=== PATIENT | female | born 1980 | race Caucasian/White ===

== ENCOUNTER 2019-09-09 02:57 | Day surgery (SDC) | payer BC, SELFPAY ==
[2019-09-07 14:23] VITALS: BMI 23.1
[2019-09-09 06:48] VITALS: BP 125/72; PULSE 95; RESP 15; TEMP 36.5; O2SAT 100; BMI 23.5
--- NOTE | 2019-09-09 07:13 | P.HP_ITS ---
History of Present Illness History of Present Illness Consent: Risks, benefits, and alternatives have been discussed and questions answered. Patient agrees to proceed with procedure. Chief complaint: Heart Burn/ Acid Reflux Narrative: Mehnaz Bell is a 38 year old female acid reflux problems. She has frequent heartburn during the day not necessarily related to meals. Lately she has been waking up at night regurgitating acid causing a great deal of burning in her chest. She gets some temporary relief with [id number] preparations. [facility], LATER [facility] Past Medical History Medical History Dysphagia Heartburn Hypokalemia Left hip pain Left knee pain Osteopenia Smoking Family History Family History Grandparent Hypertension Carcinoma of colon Father Diabetes mellitus Hypertension Malignant neoplasm of prostate Other Family history of malignant neoplasm of stomach Social History Social History Smoking status: Current every day smoker Alcohol intake: never Meds Home Medications and Allergies Home Medications Medication Instructions Recorded Confirmed Type calcium carbonate 600 mg calcium 600 mg PO DAILY #30 tablet 06/08/19 09/07/19 Rx (1,500 mg) tablet cholecalciferol (vitamin D3) 25 1,000 unit PO DAILY #30 cap 06/08/19 09/07/19 Rx mcg (1,000 unit) capsule fluticasone furoate 27.5 1 spray NASAL DAILY 06/08/19 09/07/19 History mcg/actuation nasal spray,suspension loratadine 10 mg tablet 10 mg PO DAILY 06/08/19 09/07/19 History magnesium oxide 400 mg PO DAILY #30 cap 06/08/19 09/07/19 Rx trazodone 50 mg tablet 50 mg PO DAILY tablet 06/08/19 09/07/19 History potassium chloride 10 mEq 10 meq PO TID #90 tablet 07/14/19 09/07/19 Rx tablet,extended release gabapentin 100 mg capsule 300 mg PO TID #270 cap 07/16/19 09/07/19 Rx hydrocodone 5 mg-acetaminophen 325 1 tablet PO Q8H PRN #42 tablet 08/28/19 09/09/19 Rx mg tablet Allergies Allergy/AdvReac Type Severity Reaction Status Date / Time aspirin Allergy Severe Anaphylaxis Verified 09/09/19 07:02 tramadol AdvReac Verified 09/09/19 07:02 Exam Const: General: alert Orientation/consciousness: patient oriented x3 Resp: Auscultation: clear to auscultation bilaterally Cardio: Rhythm: regular rhythm GI: GI Palp: Yes Soft to palpation and No Tenderness to palpation present (GI) Neuro: General: patient oriented x3 Assessment and Plan Assessment and plan (1) Heartburn: Code(s): R12 - Heartburn Status: Acute Assessment and Plan: EGD with possible biopsy or dilatation or cautery.
--- NOTE | 2019-09-09 07:19 | WPDANESEPPF ---
Anes - Initial Pre Proc Eval Procedure: Operation Date: 09/09/19 08:00 Proposed Procedures p Esophagogastroduodenoscopy - Humberto Claire MD Date/Time: 09/09/19 07:19 Surgeon: Humberto Claire MD Pre Op Diagnosis: Heart Burn/ Acid Reflux Patient Data Age: 38 Gender: F Height: 1.68 m Weight: 66 kg Last Vital Signs Temp 36.5 C 09/09/19 06:48 Pulse 95 09/09/19 06:48 Resp 15 09/09/19 06:48 BP 125/72 09/09/19 06:48 Pulse Ox 100 09/09/19 06:48 Allergies Allergy/AdvReac Type Severity Reaction Status Date / Time aspirin Allergy Severe Anaphylaxis Verified 09/09/19 07:02 tramadol AdvReac Verified 09/09/19 07:02 Home Medications Medication Instructions Recorded Confirmed Type calcium carbonate 600 mg calcium 600 mg PO DAILY #30 tablet 06/08/19 09/07/19 Rx (1,500 mg) tablet cholecalciferol (vitamin D3) 25 1,000 unit PO DAILY #30 cap 06/08/19 09/07/19 Rx mcg (1,000 unit) capsule fluticasone furoate 27.5 1 spray NASAL DAILY 06/08/19 09/07/19 History mcg/actuation nasal spray,suspension loratadine 10 mg tablet 10 mg PO DAILY 06/08/19 09/07/19 History magnesium oxide 400 mg PO DAILY #30 cap 06/08/19 09/07/19 Rx trazodone 50 mg tablet 50 mg PO DAILY tablet 06/08/19 09/07/19 History potassium chloride 10 mEq 10 meq PO TID #90 tablet 07/14/19 09/07/19 Rx tablet,extended release gabapentin 100 mg capsule 300 mg PO TID #270 cap 07/16/19 09/07/19 Rx hydrocodone 5 mg-acetaminophen 325 1 tablet PO Q8H PRN #42 tablet 08/28/19 09/09/19 Rx mg tablet Patient hx anesthesia problems: none Family hx anesthesia problems: none PMFSH Past Medical History Medical History Dysphagia Heartburn Hypokalemia Left hip pain Left knee pain Osteopenia Smoking Family History Family History Grandparent Hypertension Carcinoma of colon Father Diabetes mellitus Hypertension Malignant neoplasm of prostate Other Family history of malignant neoplasm of stomach Social History Social History Smoking status: Current every day smoker Alcohol intake: never Anes - Eval Final PreProcedure Day of Procedure 09/09/19 07:19 Patient weight: normal Heart: regular rate and rhythm Lungs: clear to auscultation and normal air movement Airway: Mallampati scale class II Neurological: alert and oriented Last oral intake: >/= 8 hours ASA classification: III Emergent: no Anesthetic plan: proceed Anesthesia type and monitoring: general GIVS Informed Consent: The patient's anesthetic plan and its attendant risks and benefits were discussed with the patient/family/POA. Questions were solicited and answers provided to the satisfaction of the patient/family/POA.
[2019-09-09] MEDS: LACTATED RINGERS 1,000 ML 150 ML IV CONT (07:30)
[2019-09-09 08:12] VITALS: BP 93/56; PULSE 82; RESP 25; O2SAT 98
[2019-09-09 08:24] VITALS: BP 104/65; PULSE 84; RESP 24; O2SAT 100
[2019-09-09 08:32] VITALS: BP 110/68; PULSE 89; RESP 18; O2SAT 100
== END 2019-09-09 08:43 | disposition home or self-care (01) ==
PROVIDERS: PCP Family Medicine; Visit Provider Internal Medicine Gastroenterology
PROC: 0DJ08ZZ Inspection of Upper Intestinal Tract, Via Natural or Artificial Opening Endoscopic (ICD-10-PCS; CPT 43235; principal; 2019-09-09 08:00)
DX: K21.0 Gastro-esophageal reflux disease with esophagitis (principal); K44.9 Diaphragmatic hernia without obstruction or gangrene; M85.80 Other specified disorders of bone density and structure, unspecified site; F17.210 Nicotine dependence, cigarettes, uncomplicated
CPT/HCPCS: 43239; 87081; 88305; 88312; J2704; J7120

== ENCOUNTER 2019-09-29 12:37 | Outpatient (CLI) | payer BC, SELFPAY ==
--- NOTE | 2019-09-30 20:42 | WPDPFTINT ---
PFT Interpretation PFT Interpretation: DOS: 09/29/2019 REQUESTING: Silvia Wilkinson NP REASON FOR TESTING: Chronic cough PULMONARY FUNCTION TESTS These test results are reproducible. Spirometry: Normal FEV1 92%. Normal FVC 96%. Normal FEV1%. Mild decrease in ANA01-89%. No change with bronchodilator. Lung volumes: Normal total lung capacity 99%. Normal residual volume 96%. Normal airway resistance. Diffusion: DLCO mildly reduced 68%. Flow volume loop: Blunting of the peak of the expiratory limb which improves after bronchodilator. IMPRESSION: Normal spirometry without change following bronchodilator, normal lung volumes, mild decrease in diffusion which may be due to smoking. Nonspecific blunting of the peak of the expiratory limb which improves after bronchodilator. Kate Valdivia MD
== END 2019-09-29 12:38 | disposition home or self-care (01) ==
PROVIDERS: PCP Family Medicine; Visit Provider Physician Assistant
DX: R05 Cough (principal); F17.200 Nicotine dependence, unspecified, uncomplicated
CPT/HCPCS: 94060; 94726; 94729

== ENCOUNTER 2020-02-01 12:21 | Outpatient (CLI) | payer BC, SELFPAY ==
--- NOTE | ~2020-02-01 | XR_ITS ---
EXAMINATION: XR humerus LT EXAM DATE: 02/01/2020 13:04 INDICATION: Other signs and symptoms of the musculoskeletal system. TECHNIQUE: 2 orthogonal projections left humerus. There is no prior study for comparison. FINDINGS: There are no acute humeral fractures or dislocations identified. There is no subcutaneous gas. The soft tissue is unremarkable. There are no radiopaque foreign bodies. IMPRESSION: 1. Unremarkable left humerus exam. Reviewed, dictated and finalized at location B.
--- NOTE | ~2020-02-01 | XR_ITS ---
EXAMINATION: XR_CERV2-3V_CR EXAM DATE: 02/01/2020 13:05 INDICATION: Other signs and symptoms of the musculoskeletal system. TECHNIQUE: Cervical spine frontal, lateral, open-mouth odontoid projections. There is no prior stud y for comparison. FINDINGS: There is old right 6th rib fracture posteriorly. Craniotomy. Lung apices clear. There is m ild reversal of the normal cervical lordosis which may be positional or spasm. Mild cervical facet a rthropathy. The vertebral bodies are aligned in the AP dimension. Vertebral body and disc heights are well-maintained. The odontoid process is intact. The lateral masses of C1 line up with C2. IMPRESSION: 1. Mild reversal of normal cervical lordosis. 2. Mild cervical facet arthropathy. Reviewed, dictated and finalized at location B.
--- NOTE | ~2020-02-01 | XR_ITS ---
EXAMINATION: XR wrist LT 2V EXAM DATE: 02/01/2020 13:04 INDICATION: Other signs and symptoms of the musculoskeletal system. TECHNIQUE: Frontal and lateral projections of the left wrist. There is no prior study for compariso n. FINDINGS: There are no bony erosions identified. There are no acute fractures or dislocations identi fied. There is no subcutaneous gas. The soft tissue is unremarkable. There are no radiopaque fore ign bodies. Left scapholunate joint space is maintained. IMPRESSION: 1. Unremarkable left wrist exam. Reviewed, dictated and finalized at location B.
== END 2020-02-01 12:22 | disposition home or self-care (01) ==
LOC: ANHIMG 12:28
PROVIDERS: PCP Family Medicine; Visit Provider Physician Assistant
DX: R29.898 Other symptoms and signs involving the musculoskeletal system (principal); Z91.81 History of falling
CPT/HCPCS: 72040; 73060; 73100

== ENCOUNTER 2020-03-10 08:09 | Outpatient (CLI) | payer BC, SELFPAY ==
--- NOTE | ~2020-03-10 | MR_ITS ---
EXAMINATION: MR cervical spine wo con EXAM DATE: 03/10/2020 09:12 INDICATION: Neck pain. TECHNIQUE: Multi-sequential, multiplanar MR images of the cervical spine were obtained without contra st. Axial T2, axial T2 MERGE sequence. Sagittal T1, T2, T2 fat saturation images also obtained. Th ere is no prior study for comparison. FINDINGS: There is mild disc disease from C3 through C6. The vertebral body and disc heights are oth erwise well maintained. The vertebral bodies are aligned in the AP dimension. The spinal cord signal intensity and intrinsic morphology is normal. Cervicomedullary junction is normal in appearance. Ther e are no suspicious marrow signal abnormalities. Paraspinal soft tissue is unremarkable. Level by level evaluation: C2-C3: Disc does not extend beyond the endplate margin. Uncovertebral joint arthropathy: None. Facet joint arthropathy: Mild bilateral. Neural foraminal stenosis: No stenosis. Central canal stenosis: No stenosis. C3-C4: Disc does not extend beyond the endplate margin. Uncovertebral joint arthropathy: None. Facet joint arthropathy: Mild bilateral. Neural foraminal stenosis: No stenosis. Central canal stenosis: No stenosis. C4-C5: Disc does not extend beyond the endplate margin. Uncovertebral joint arthropathy: Mild bilateral. Facet joint arthropathy: Mild bilateral. Neural foraminal stenosis: Mild right, minimal left. Central canal stenosis: No stenosis. C5-C6: There is a mild diffuse disc bulge. Uncovertebral joint arthropathy: Mild bilateral. Facet joint arthropathy: Mild to moderate bilateral. Neural foraminal stenosis: Mild to moderate bilateral. Central canal stenosis: Mild. C6-C7: Disc does not extend beyond the endplate margin. Uncovertebral joint arthropathy: Mild bilateral. Facet joint arthropathy: Mild to moderate bilateral. Neural foraminal stenosis: Minimal bilateral. Central canal stenosis: No stenosis. C7-T1: Disc does not extend beyond the endplate margin. Uncovertebral joint arthropathy: None. Facet joint arthropathy: Mild bilateral. Neural foraminal stenosis: No stenosis. Central canal stenosis: No stenosis. IMPRESSION: 1. Mild cervical spondylosis. Reviewed, dictated and finalized at location A.
== END 2020-03-10 08:10 | disposition home or self-care (01) ==
PROVIDERS: PCP Family Medicine; Visit Provider Physician Assistant
DX: R20.2 Paresthesia of skin (principal); R29.898 Other symptoms and signs involving the musculoskeletal system; M47.892 Other spondylosis, cervical region
CPT/HCPCS: 72141

== ENCOUNTER 2020-03-16 00:38 | Outpatient (CLI) | payer BC, SELFPAY ==
[2020-03-16 18:41] LABS: SARS-CoV-2 RNA PCR Negative
== END 2020-03-16 00:39 | disposition home or self-care (01) ==
LOC: ANHCOVIDDT 00:39
PROVIDERS: PCP Family Medicine; Visit Provider Internal Medicine Gastroenterology
DX: Z01.812 Encounter for preprocedural laboratory examination (principal); Z20.828 Contact with and (suspected) exposure to other viral communicable diseases
CPT/HCPCS: 87635; C9803; U0003

== ENCOUNTER 2020-03-18 01:59 | Day surgery (SDC) | payer BC, SELFPAY ==
[2020-03-10 13:26] VITALS: BMI 22.7
[2020-03-18 09:23] VITALS: BP 120/80; PULSE 86; RESP 16; TEMP 36.6; O2SAT 100; BMI 22.6
--- NOTE | 2020-03-18 09:24 | P.HP_ITS ---
History of Present Illness History of Present Illness Consent: Risks, benefits, and alternatives have been discussed and questions answered. Patient agrees to proceed with procedure. Chief complaint: esophagitis Narrative: Mehnaz Bell is a 39 year old female here for follow-up of severe erosive esophagitis. She has been taking omeprazole 40 mg daily and feeling better. [facility] Past Medical History Medical History Allergic rhinitis Anemia Cough Depression Dysphagia Heartburn Hypokalemia Left arm weakness Left hip pain Left knee pain Neck pain Osteopenia Pure hypercholesterolemia Reflux esophagitis Smoking Status post fall Wellness examination Social History Social History Smoking packs per day: 0.5 Smoking cigarettes per day: 10.0 Years smoked: 15 Smoking pack-years: 7.50 Smoking status: Current every day smoker Tobacco type: cigarettes Alcohol intake: never Substance use: never Substance use type: does not use Gender identity (if verbalized by the patient): Female Meds Home Medications and Allergies Home Medications Medication Instructions Recorded Confirmed Type magnesium oxide 400 mg PO DAILY #30 cap 06/08/19 03/10/20 Rx ferrous sulfate 325 mg (65 mg 325 mg PO .EOD #45 tablet 01/11/20 03/10/20 Rx iron) tablet omeprazole 40 mg capsule,delayed 40 mg PO DAILY #90 cap 01/12/20 03/10/20 Rx release albuterol sulfate 90 mcg/actuation 2 inhalation INHALATION Q4H PRN 02/15/20 03/10/20 Rx aerosol inhaler #8.5 gm armodafinil 150 mg tablet 150 mg PO QAM #30 tablet 02/15/20 03/10/20 Rx fluticasone furoate 27.5 1 spray NASAL DAILY #18.2 ml 02/15/20 03/10/20 Rx mcg/actuation nasal spray,suspension loratadine 10 mg tablet 10 mg PO DAILY #30 tablet 02/15/20 03/10/20 Rx potassium chloride 10 mEq 10 meq PO TID #90 tablet 02/15/20 03/10/20 Rx tablet,extended release trazodone 50 mg tablet See Rx Instructions .ROUTE 02/15/20 03/10/20 Rx .COMPLEX #30 tablet gabapentin 100 mg capsule 300 mg PO TID #270 cap 03/01/20 03/10/20 Rx melatonin 20 mg PO HS PRN 03/10/20 03/10/20 History hydrocodone 5 mg-acetaminophen 325 1 tablet PO Q8H PRN #42 tablet 03/11/20 03/11/20 Rx mg tablet Allergies Allergy/AdvReac Type Severity Reaction Status Date / Time aspirin Allergy Severe Anaphylaxis Verified 03/18/20 09:23 tramadol AdvReac high risk Verified 03/18/20 09:23 for seizures Exam Const: General: alert Orientation/consciousness: patient oriented x3 Resp: Auscultation: clear to auscultation bilaterally Cardio: Rhythm: regular rhythm GI: GI Palp: Yes Soft to palpation and No Tenderness to palpation present (GI) Neuro: General: patient oriented x3 Assessment and Plan Assessment and plan (1) Esophagitis, erosive: Code(s): K22.10 - Ulcer of esophagus without bleeding Status: Acute Assessment and Plan: EGD with possible biopsy or dilatation or cautery.
[2020-03-18] MEDS: LACTATED RINGERS 1,000 ML 150 ML IV CONT (09:42)
--- NOTE | 2020-03-18 09:51 | WPDANESEPPF ---
Anes - Initial Pre Proc Eval Procedure: Operation Date: 03/18/20 10:00 Proposed Procedures p Esophagogastroduodenoscopy - Humberto Claire MD Date/Time: 03/18/20 09:51 Surgeon: Humberto Claire MD Pre Op Diagnosis: esophagitis Patient Data Age: 39 Gender: F Height: 5 ft 6 in Weight: 63.6 kg Last Vital Signs Temp 97.8 F 03/18/20 09:23 Pulse 86 03/18/20 09:23 Resp 16 03/18/20 09:23 BP 120/80 03/18/20 09:23 Pulse Ox 100 03/18/20 09:23 Allergies Allergy/AdvReac Type Severity Reaction Status Date / Time aspirin Allergy Severe Anaphylaxis Verified 03/18/20 09:23 tramadol AdvReac high risk Verified 03/18/20 09:23 for seizures Home Medications Medication Instructions Recorded Confirmed Type magnesium oxide 400 mg PO DAILY #30 cap 06/08/19 03/18/20 Rx ferrous sulfate 325 mg (65 mg 325 mg PO .EOD #45 tablet 01/11/20 03/18/20 Rx iron) tablet omeprazole 40 mg capsule,delayed 40 mg PO DAILY #90 cap 01/12/20 03/18/20 Rx release albuterol sulfate 90 mcg/actuation 2 inhalation INHALATION Q4H PRN 02/15/20 03/18/20 Rx aerosol inhaler #8.5 gm armodafinil 150 mg tablet 150 mg PO QAM #30 tablet 02/15/20 03/18/20 Rx fluticasone furoate 27.5 1 spray NASAL DAILY #18.2 ml 02/15/20 03/18/20 Rx mcg/actuation nasal spray,suspension loratadine 10 mg tablet 10 mg PO DAILY #30 tablet 02/15/20 03/18/20 Rx potassium chloride 10 mEq 10 meq PO TID #90 tablet 02/15/20 03/18/20 Rx tablet,extended release trazodone 50 mg tablet See Rx Instructions .ROUTE 02/15/20 03/18/20 Rx .COMPLEX #30 tablet gabapentin 100 mg capsule 300 mg PO TID #270 cap 03/01/20 03/18/20 Rx melatonin 20 mg PO HS PRN 03/10/20 03/18/20 History hydrocodone 5 mg-acetaminophen 325 1 tablet PO Q8H PRN #42 tablet 03/11/20 03/18/20 Rx mg tablet Patient hx anesthesia problems: none Family hx anesthesia problems: none PMFSH Past Medical History Medical History Allergic rhinitis Anemia Cough Depression Dysphagia Heartburn Hypokalemia Left arm weakness Left hip pain Left knee pain Neck pain Osteopenia Pure hypercholesterolemia Reflux esophagitis Smoking Status post fall Wellness examination Social History Social History Smoking packs per day: 0.5 Smoking cigarettes per day: 10.0 Years smoked: 15 Smoking pack-years: 7.50 Smoking status: Current every day smoker Tobacco type: cigarettes Alcohol intake: never Substance use: never Substance use type: does not use Gender identity (if verbalized by the patient): Female Anes - Eval Final PreProcedure Day of Procedure 03/18/20 09:51 Patient weight: normal Heart: regular rate and rhythm Lungs: clear to auscultation Airway: Mallampati scale class II Neurological: alert and oriented Last oral intake: >/= 8 hours ASA classification: III Emergent: no Anesthetic plan: proceed Anesthesia type and monitoring: general GIVS and standard monitoring Informed Consent: The patient's anesthetic plan and its attendant risks and benefits were discussed with the patient/family/POA. Questions were solicited and answers provided to the satisfaction of the patient/family/POA.
[2020-03-18] MEDS: BENZOCAINE (*SP) 60 ML SPRAY CAN (HURRICAINE) 1 SPRAY MUCOUS MEM (09:55)
[2020-03-18 10:10] VITALS: BP 106/61; PULSE 81; RESP 13; O2SAT 92
[2020-03-18 10:20] VITALS: BP 112/65; PULSE 74; RESP 15; O2SAT 92
[2020-03-18 10:30] VITALS: BP 112/62; PULSE 88; RESP 15; O2SAT 99
== END 2020-03-18 10:49 | disposition home or self-care (01) ==
PROVIDERS: PCP Family Medicine; Visit Provider Internal Medicine Gastroenterology
PROC: 0DJ08ZZ Inspection of Upper Intestinal Tract, Via Natural or Artificial Opening Endoscopic (ICD-10-PCS; CPT 43235; principal; 2020-03-18 10:00)
DX: K21.0 Gastro-esophageal reflux disease with esophagitis (principal); K22.10 Ulcer of esophagus without bleeding; K29.80 Duodenitis without bleeding; J45.909 Unspecified asthma, uncomplicated; E78.00 Pure hypercholesterolemia, unspecified; F41.9 Anxiety disorder, unspecified; Z79.51 Long term (current) use of inhaled steroids; Z79.899 Other long term (current) drug therapy; Z79.891 Long term (current) use of opiate analgesic; Z86.79 Personal history of other diseases of the circulatory system
CPT/HCPCS: 43239; 88305; J2704; J7120

== ENCOUNTER 2020-03-30 07:39 | Outpatient (CLI) | payer BC, SELFPAY ==
--- NOTE | ~2020-03-30 | NM_ITS ---
EXAM: NM gastric emptying study DATE: 03/30/2020 12:26 INDICATION: Gastroparesis TECHNIQUE: A gastric emptying study was performed using the methodology of Jessica NARVAEZ, et al. J Nucl Med 2007; 48:568-572. The patient was given a meal consisting of 2 scrambled eggs labeled with 0.972 mCi Tc-99m sulfur colloid, 2 slices of toast, two packages of jam, and approximately 120 mL of water . Simultaneous anterior and posterior 1-min images of the abdomen were obtained with the patient supi ne at multiple time points over a total period of 4 hours. The geometric mean of anterior and posteri or views was determined, and the percentage retention was calculated for each time point. COMPARISON: None. FINDINGS: Gastric retention of the radiotracer-labeled meal was 64%, 52%, and 20% at the 1-hour, 2-hour, and 4- hour time points, respectively. With this technique, apparent rapid gastric emptying is suggested by <30% gastric retention at 1 hour. Delayed gastric emptying is defined by gastric retention of >90% at 1 hour, >60% retention at 2 hours, or >10% retention at 4 hours. IMPRESSION: 1. Delayed gastric emptying. Reviewed, dictated and finalized at location A.
== END 2020-03-30 07:40 | disposition home or self-care (01) ==
LOC: ANHIMG 07:40
PROVIDERS: PCP Family Medicine; Visit Provider Internal Medicine Gastroenterology
DX: K31.84 Gastroparesis (principal); K30 Functional dyspepsia
CPT/HCPCS: 78264; A9541

== ENCOUNTER 2020-09-14 09:14 | Outpatient (RCR) | payer BC, SELFPAY ==
--- NOTE | 2020-09-14 10:33 | PTOPEVAL ---
PHYSICAL THERAPY EVALUATION AND PLAN OF CARE Thank you for referring Mehnaz Bell to [facility].? The patient is scheduled to be seen for therapy? 2x/week for 4 weeks. Please review, sign, date and return this plan of care DYLLAN. I agree with and certify that the following plan of care is medically necessary. Referring Physician Date Attending Provider: Carlos Hector MD Evaluation Outpatient Past Medical History Neurological History Hx Other Neurological Disorders Yes: Brain Anyresum 2017 Cardiovascular History Hx Hypercholesterolemia Yes Hx Irregular Heartbeat Yes: when potassium level low Respiratory History Hx Asthma Yes Hx Bronchitis Yes Gastrointestinal History Hx Gastroesophageal Reflux Disease Yes Genitourinary History Hx Genitourinary Disorders No Significant History Musculoskeletal History Hx Back Pain Yes Hx Fibromyalgia Yes: Left hip and leg Hx Orthopedic Surgery Yes: pins in left hip August 2018 Hematological History Hx Anemia Yes Endocrine History Hx Endocrine Disorders No Significant History HEENT History Hx HEENT Disorders No Significant History Integumentary History Hx Skin Disorders No Significant History Reproductive History Hx Reproductive Disorders No Significant History Psychosocial History Hx Anxiety Yes Hx Attention Deficit Hyperactivity Yes Disorder Pain History Has Past Pain Affected Your Daily Life Yes History of Long-Term Prescription Pain Yes Medication Use (Opiates) Anesthesia History Hx Other Anesthesia Reactions Yes: hypotension, baseline bp low Other History Hx Implanted Device Yes: aneurysym clip,pins left hip Hx MRSA Yes: leg 2011 Diagnosis left TKA revision Onset 09/06/2020 Subjective Information Mehnaz has an extensive Query Text:As Reported By Patient/ history of left knee surgeries Family . On 09/06/20 she had surgery to revise TKA on left. She is weight bearing as tolerated to the left leg. She is using a 3 wheeled walker on occasion , but is walking around the clinic without the walker. Reports she has had nothing for pain. Was told by physician she would use walker until he saw her again (09/19) and would progress to
--- NOTE | 2020-09-20 10:33 | PCPTNOTE ---
Patient did not show up for scheduled appointment this date. Called and left message.
--- NOTE | 2020-09-22 15:18 | PCPTNOTE ---
Patient did not show up for scheduled appointment this date; called and left voicemail for reminder on next appointment
--- NOTE | 2020-09-27 09:41 | PCPTNOTE ---
Addendum entered by Sindhu Dyer, EVENT EXECUTIVE 09/27/20 09:54: Called and left voicemail informing patient about appointment on 09/29 @9:15 if she no shows or doesn't call she will be discharged. Original Note: Patient did not show up for scheduled appointment this date; notified therapist on patients 3 no show.
--- NOTE | 2020-09-29 11:00 | PCPTNOTE ---
pt did not show for appt today, which is her 4th NO show appt; called and left a message on her voice mail that ALL her PT appointments have been canceled and she is to call in the next 2 weeks if she needs to continue, otherwise PT will be discharged;
--- NOTE | 2020-10-10 10:16 | PCPTNOTE ---
Admitting Provider: Attending Provider: Carlos Hector MD Patient:Mehnaz Bell Date of :1980 Discharge Note Patient has not returned for any further treatments since therapy evaluation on 09/14/2020, therefore she will be discharged at this time. Patient?s initial visit was on 09/14/2020 09:00 and she had a total of 1 visits. She had repeated no show of her follow-up therapy visits. She was contacted regarding her therapy visits. The goals have been not met due to she was need for only 1 therapy visit. Thank you for referring this patient to [facility]. Please review, sign, date and return this discharge summary DYLLAN. I have been updated about the patient's current status and I agree with discharge from the above service at this time. Referring Physician Date
== END 2020-10-10 15:11 | disposition home or self-care (01) ==
LOC: ANHPT 09:14
PROVIDERS: PCP Family Medicine; Visit Provider Orthopaedic Surgery
DX: Z47.1 Aftercare following joint replacement surgery (principal); M17.12 Unilateral primary osteoarthritis, left knee; Z96.652 Presence of left artificial knee joint
CPT/HCPCS: 97110; 97162

== ENCOUNTER 2022-01-01 08:39 | Emergency (ER) | payer OTHER, SELFPAY ==
--- NOTE | ~2022-01-01 | XR_ITS ---
XR knee LT 3V DATE: 01/01/2022 08:59 INDICATION: Fall yesterday. Anterior knee pain. TECHNIQUE: 3 views including crosstable lateral COMPARISON: 04/01/2014 FINDINGS: There is suprapatellar knee joint effusion. Status post left knee arthroplasty without patellar resurfacing. No recent fracture or dislocation, periosteal reaction or bone destruction. There is osteopenia. IMPRESSION: Left knee joint effusion Osteopenia Left knee arthroplasty Reviewed, dictated and finalized at location A.
[2022-01-01 08:43] VITALS: BP 143/93; PULSE 89; RESP 14; TEMP 36.8; O2SAT 100
--- NOTE | 2022-01-01 09:40 | ED.GENADULT ---
HPI - General Adult General Chief complaint: Unspecified Stated complaint: knee injury/boil Time Seen by Provider: 01/01/22 08:50 History of Present Illness HPI narrative: 41-year-old female who has history of left knee replacement states that she fell 2 days ago, and now has pain in her left knee, she is still walking on it and wants to make sure that there is nothing wrong with it. She states that she also noticed a draining boil on her left buttock about 3 days ago, she states that initially drained some pus but has been draining much less over the last few days, denies any fevers or chills, denies much pain. Related Data Home Medications Medication Instructions Recorded Confirmed acetaminophen 500 mg tablet 1,000 mg PO QID PRN 08/15/21 08/15/21 buprenorphine 8 mg-naloxone 2 mg 1 tablet sublingual TID 08/15/21 08/15/21 sublingual tablet melatonin 10 mg tablet 20 mg PO QHS 08/15/21 08/15/21 Allergies Allergy/AdvReac Type Severity Reaction Status Date / Time aspirin Allergy Severe Anaphylaxis Verified 01/01/22 08:45 tramadol AdvReac high risk Verified 01/01/22 08:45 for seizures Review of Systems Review of Systems: CONST: No fever. HEENT: No sore throat C/V: No chest pain RESP: No difficulty breathing GI: No nausea vomiting : No dysuria. M/S: Left knee pain. SKIN: Boil NEURO: [No focal numbness or weakness] PSYCH: [No depression] PMFSH Past Medical History Medical History Allergic rhinitis Anemia Asthma Cough Depression Dysphagia Encounter to establish care GERD (gastroesophageal reflux disease) Heartburn Hypokalemia Left arm weakness Left hip pain Left knee pain Neck pain Osteopenia Pure hypercholesterolemia Reflux esophagitis Smoking Status post fall Wellness examination Family History Family History Grandparent Hypertension Carcinoma of colon Father Diabetes mellitus Hypertension Malignant neoplasm of prostate Asthma Mother Hypertension Depression Grandparent Stomach cancer Other Family history of malignant neoplasm of stomach Social History Social History Smoking packs per day: 0.5 Smoking cigarettes per day: 10.0 Years smoked: 15 Smoking pack-years: 7.50 Smoking status: Current every day smoker Tobacco type: cigarettes Alcohol intake: never Substance use: never Substance use type: does not use Gender identity (if verbalized by the patient): Female Exam Narrative: EXAMINATION OF ORGAN SYSTEMS/BODY AREAS: Constitutional: Vital signs per nursing GENERAL:[No acute distress, non-toxic appearing.] HEAD: Normal with no signs of head trauma. EYES: EOMI, conjunctiva normal ENT: Hearing grossly intact LUNGS: Nonlabored breathing. HEART: [Regular rate and rhythm] ABD: No distension EXT: Normal range of motion, some tenderness/swelling to left knee without laxity, NVI SKIN: 2cm x 2 cm skin lesion to left buttock without any active drainage at this time, no exquisite tenderness, no fluctuance or extension of induration much past the lesion NEURO: [Alert and oriented x 3. No gross focal sensory or strength deficits.] PSYCH: Normal affect Course Vital Signs Vital signs: Vital Signs Temperature 98.3 F 01/01/22 08:43 Pulse Rate 89 01/01/22 08:43 Respiratory Rate 14 01/01/22 08:43 Blood Pressure 143/93 H 01/01/22 08:43 Pulse Oximetry 100 01/01/22 08:43 Oxygen Delivery Room Air 01/01/22 08:43 Temperature 98.3 F 01/01/22 08:43 Pulse Rate 89 01/01/22 08:43 Respiratory Rate 14 01/01/22 08:43 Blood Pressure 143/93 H 01/01/22 08:43 Pulse Oximetry 100 01/01/22 08:43 Oxygen Delivery Room Air 01/01/22 08:43 Medical Decision Making [facility] Narrative Medical decision making narrative: 41-year-old female presenting with an abscess and left knee letciia
== END 2022-01-01 09:55 | disposition home or self-care (01) ==
PROVIDERS: Emergency Provider Emergency Medicine; PCP Family Medicine
DX: S89.92XA Unspecified injury of left lower leg, initial encounter (principal); L02.31 Cutaneous abscess of buttock; J45.909 Unspecified asthma, uncomplicated; E78.00 Pure hypercholesterolemia, unspecified; M85.80 Other specified disorders of bone density and structure, unspecified site; K21.00 Gastro-esophageal reflux disease with esophagitis, without bleeding; Z86.2 Personal history of diseases of the blood and blood-forming organs and certain disorders involving the immune mechanism; F17.210 Nicotine dependence, cigarettes, uncomplicated; W19.XXXA Unspecified fall, initial encounter
CPT/HCPCS: 73562; 99283; A9270

== ENCOUNTER → 2022-01-16 12:20 | Outpatient (CLI) | payer OTHER, SELFPAY ==
--- NOTE | ~2022-01-16 | XR_ITS ---
XR foot RT min 3V DATE: 01/16/2022 12:37 INDICATION: Fall. Right foot pain. TECHNIQUE: 4 views COMPARISON: None FINDINGS: There are nondisplaced transverse fractures of the metaphyses of the proximal phalanges of the fourth and fifth digits. No fracture or dislocation, periosteal reaction or bone destruction is noted otherwise. IMPRESSION: Nondisplaced transverse metaphyseal fractures of proximal phalanx of fourth and fifth dig its Reviewed, dictated and finalized at location A. IMPRESSION: Nondisplaced transverse metaphyseal fractures of proximal phalanx o f fourth and fifth digits
== END ==
PROVIDERS: PCP Family Medicine; Visit Provider Nurse Practitioner Family
DX: S92.514A Nondisplaced fracture of proximal phalanx of right lesser toe(s), initial encounter for closed fracture (principal); X58.XXXA Exposure to other specified factors, initial encounter
CPT/HCPCS: 73630

== ENCOUNTER 2022-02-27 18:32 | Emergency (ER) | payer OTHER, SELFPAY ==
[2022-02-27 18:36] VITALS: BP 132/83; PULSE 71; RESP 20; TEMP 37.2; O2SAT 100
--- NOTE | 2022-02-27 19:54 | PC.NURSE ---
PA at bedside to assess pt.
[2022-02-27] MEDS: TETANUS,DIPHTHERIA,AC PERTUSSIS ADULT (0.5 ML) BOOSTRIX IM (20:10)
[2022-02-27] MEDS: LIDO 1%/EPINEPHRINE 1:100,000 20 ML VIAL INFILTRATE (20:11)
--- NOTE | 2022-02-27 20:12 | ED.WOUNDLAC ---
HPI - Wound/Laceration General Chief Complaint: Wound/Laceration <Lesly Luna PA-C - Last Filed: 02/27/22 21:05> Stated Complaint: laceration left hand <MELIDA Carrington Last Filed: 02/27/22 21:05> Time Seen by Provider: 02/27/22 19:31 <MELIDA Carrington Last Filed: 02/27/22 21:05> Source: patient <MELIDA Carrington Last Filed: 02/27/22 21:05> Mode of arrival: ambulatory <MELIDA Carrington Last Filed: 02/27/22 21:05> Limitations: no limitations <MELIDA Carrington Last Filed: 02/27/22 21:05> History of Present Illness HPI narrative: This is a 41-year-old female that presents emergency department for a laceration to the left wrist sustained just prior to arrival. Reports she was trying to cut a piece of meat and the knife slipped. Sustained a laceration with bleeding and pain to the area. She is unsure of her last tetanus vaccination. Denies decreased range of motion or numbness. <MELIDA Carrington Last Filed: 02/27/22 21:05> Related Data Home Medications: Home Medications Medication Instructions Recorded Confirmed acetaminophen 500 mg tablet 1,000 mg PO QID PRN 08/15/21 01/16/22 melatonin 10 mg tablet 20 mg PO QHS 08/15/21 01/16/22 lacosamide 100 mg tablet (Vimpat) 100 mg PO Q12H 01/16/22 01/16/22 naltrexone microspheres [Vivitrol] IM 01/16/22 01/16/22 <MELIDA Carrington Last Filed: 02/27/22 21:05> Allergies/Adverse Reactions: Allergies Allergy/AdvReac Type Severity Reaction Status Date / Time aspirin Allergy Severe Anaphylaxis Verified 01/16/22 11:01 tramadol AdvReac high risk Verified 01/16/22 11:01 for seizures <MELIDA Carrington Last Filed: 02/27/22 21:05> Review of Systems Review of Systems: CONSTITUTIONAL: Denies fever SKIN: Reports laceration <Lesly Luna PA-C - Last Filed: 02/27/22 21:05> All systems reviewed & are unremarkable except as noted in HPI and below <Lesly Luna PA-C - Last Filed: 02/27/22 21:05> PMFSH Past Medical History Medical History: Medical History (Updated 02/28/22 @ 00:00 by Cedric Sorto) Allergic rhinitis Anemia Asthma Broken toe 2 toes on right foot Cough Depression Dysphagia Encounter to establish care GERD (gastroesophageal reflux disease) Heartburn Hx of drug abuse Hypokalemia Left arm weakness Left hip pain Left knee pain Neck pain Osteopenia Pure hypercholesterolemia Reflux esophagitis Right foot pain Seizure Smoking Status post fall Urinary incontinence Wellness examination <Lesly Luna PA-C - Last Filed: 02/27/22 21:05> Family History Family History: Family History Grandparent Hypertension Carcinoma of colon Father Diabetes mellitus Hypertension Malignant neoplasm of prostate Asthma Mother Hypertension Depression Grandparent Stomach cancer Other Family history of malignant neoplasm of stomach <Lesly Luna PA-C - Last Filed: 02/27/22 21:05> Social History Social History: Social History (Updated 02/27/22 @ 20:14 by Lesly Luna PA-C) Smoking packs per day: 0.5 Smoking cigarettes per day: 10.0 Years smoked: 15 Smoking pack-years: 7.50 Smoking status: Current every day smoker Tobacco type: cigarettes Alcohol intake: never Substance use: former Gender identity (if verbalized by the patient): Female <Lesly Luna PA-C - Last Filed: 02/27/22 21:05> Exam Narrative: GENERAL: Well-appearing, well-nourished, and in no acute distress. HEAD: Normocephalic, atraumatic. EYES: EOMI. EXTREMITIES: Normal range of motion. No edema. Left wrist volar surface with 1cm flap laceration into subcutaneous tissue. Normal radial pulse SKIN: Warm, dry, no rash. NEURO: No focal deficits. Alert and oriented x3. PSYCH: Normal mood and affect <Lesly Luna PA-C - Last Filed: 02/27/22 21:05> Course
== END 2022-02-27 21:29 | disposition home or self-care (01) ==
PROVIDERS: Emergency Provider Emergency Medicine; PCP Family Medicine
DX: S61.512A Laceration without foreign body of left wrist, initial encounter (principal); Z23 Encounter for immunization; E78.00 Pure hypercholesterolemia, unspecified; K21.9 Gastro-esophageal reflux disease without esophagitis; M85.80 Other specified disorders of bone density and structure, unspecified site; Z86.2 Personal history of diseases of the blood and blood-forming organs and certain disorders involving the immune mechanism; F17.210 Nicotine dependence, cigarettes, uncomplicated; Y93.G1 Activity, food preparation and clean up; W26.0XXA Contact with knife, initial encounter
CPT/HCPCS: 12001; 90471; 90715; 99283

== ENCOUNTER 2022-06-25 17:27 | Emergency (ER) | payer OTHER, SELFPAY ==
[2022-06-25 18:06] VITALS: BP 129/86; PULSE 69; RESP 18; TEMP 36.4; O2SAT 98
--- NOTE | 2022-06-25 19:59 | ED.WOUNDLAC ---
HPI - Wound/Laceration General Chief Complaint: Wound/Laceration Stated Complaint: spider bite? Time Seen by Provider: 06/25/22 19:35 History of Present Illness HPI narrative: 41-year-old female presents to the emergency room for evaluation of an abscess on her left upper posterior thigh. Patient states the abscess began draining yesterday yellowish drainage. He states notes erythema around the abscess. Denies fevers. Related Data Home Medications Medication Instructions Recorded Confirmed acetaminophen 500 mg tablet 1,000 mg PO QID PRN 08/15/21 03/12/22 melatonin 10 mg tablet 20 mg PO QHS 08/15/21 03/12/22 naltrexone microspheres [Vivitrol] IM 01/16/22 03/12/22 lacosamide 100 mg tablet (Vimpat) 150 mg PO Q12H 03/12/22 03/12/22 Allergies Allergy/AdvReac Type Severity Reaction Status Date / Time aspirin Allergy Severe Anaphylaxis Verified 06/25/22 18:09 tramadol AdvReac high risk Verified 06/25/22 18:09 for seizures Review of Systems Review of Systems: CONSTITUTIONAL: Denies fever, chills, or sweats. EYES: Denies visual changes, redness, or discharge. ENT: Denies rhinorrhea, congestion, sore throat, or otalgia. CARDIOVASCULAR: Denies chest pain, palpitations, or edema. RESPIRATORY: Denies cough or dyspnea. GASTROINTESTINAL: Denies abdominal pain, nausea, vomiting, or diarrhea. GENITOURINARY: Denies dysuria or hematuria. SKIN: Reports abscess to left thigh MUSCULOSKELETAL: Denies back pain, joint pain, or myalgia. NEUROLOGIC: Denies headache, numbness, dizziness, or weakness. PSYCHIATRIC: Denies anxiety or depression. [facility] Past Medical History Medical History Allergic rhinitis Anemia Asthma Broken toe 2 toes on right foot Cough Depression Dysphagia Encounter to establish care GERD (gastroesophageal reflux disease) Heartburn Hx of drug abuse Hypokalemia Left arm weakness Left hip pain Left knee pain Muscle spasm Neck pain Osteopenia Pure hypercholesterolemia Reflux esophagitis Right foot pain Seasonal allergies Seizure Smoking Status post fall Urinary incontinence Wellness examination Family History Family History Grandparent Hypertension Carcinoma of colon Father Diabetes mellitus Hypertension Malignant neoplasm of prostate Asthma Mother Hypertension Depression Grandparent Stomach cancer Other Family history of malignant neoplasm of stomach Social History Social History Smoking packs per day: 0.5 Smoking cigarettes per day: 10.0 Years smoked: 15 Smoking pack-years: 7.50 Smoking status: Current every day smoker Tobacco type: cigarettes Alcohol intake: never Substance use: former Gender identity (if verbalized by the patient): Female Exam Narrative: GENERAL: Well-appearing, well-nourished, no physical limitations, and in no acute distress. HEAD: Normocephalic, atraumatic. EYES: Conjunctivae normal, PERRLA and EOMI. CHEST: Clear to auscultation. No respiratory distress. No wheezes rales or rhonchi. HEART: Regular rate and rhythm. No murmur heard. Normal peripheral pulses. EXTREMITIES: Normal range of motion. No edema. No clubbing or cyanosis SKIN: Left posterior lateral thigh: 4 cm area of erythema with centralized draining abscess. No signs of lymphangitic spread NEURO: No focal deficits. Alert and oriented x3. MAEW. CN's II-XI intact bilaterally, normal gait PSYCH: Cooperative. Normal mood and affect. Course Vital Signs Vital signs: Vital Signs Temperature 36.4 C 06/25/22 18:06 Pulse Rate 69 06/25/22 18:06 Respiratory Rate 18 06/25/22 18:06 Blood Pressure 129/86 06/25/22 18:06 Pulse Oximetry 98 06/25/22 18:06 Temperature 36.4 C 06/25/22 18:06 Pulse Rate 69 06/25/22 18:06 Respiratory Rate 18 06/25/22 18:06 Blood Pressure 129/86
[2022-06-25 20:22] VITALS: BP 124/78; PULSE 78; RESP 16; TEMP 37; O2SAT 100
== END 2022-06-25 20:28 | disposition home or self-care (01) ==
LOC: ANHED 20:16
PROVIDERS: Emergency Provider Nurse Practitioner Family; PCP Nurse Practitioner Family
DX: L02.416 Cutaneous abscess of left lower limb (principal); J45.909 Unspecified asthma, uncomplicated; E78.00 Pure hypercholesterolemia, unspecified; K21.9 Gastro-esophageal reflux disease without esophagitis; M85.80 Other specified disorders of bone density and structure, unspecified site; R32 Unspecified urinary incontinence; F17.210 Nicotine dependence, cigarettes, uncomplicated; Z86.2 Personal history of diseases of the blood and blood-forming organs and certain disorders involving the immune mechanism
CPT/HCPCS: 99283

== ENCOUNTER → 2025-04-13 09:37 | Outpatient (CLI) | payer OTHER, SELFPAY ==
--- NOTE | ~2025-04-13 | XR_ITS ---
EXAMINATION: XR forearm LT 2V, 04/13/2025 9:45 CDT HISTORY: M79.632 - Pain in left forearm COMPARISON: No comparisons available. Findings: No acute fracture or malalignment. No significant degenerative changes. Soft tissues unremarkable. Impression: No acute fracture or malalignment. Reviewed, dictated and finalized at location A. Impression: No acute fracture or malalignment.
--- NOTE | ~2025-04-13 | XR_ITS ---
EXAMINATION: XR wrist LT 2V, 04/13/2025 9:45 CDT HISTORY: M25.532 - Pain in left wrist COMPARISON: No comparisons available. Findings: No acute fracture or malalignment. No significant degenerative changes. Soft tissues unremarkable. Impression: No acute fracture or malalignment. Reviewed, dictated and finalized at location A. Impression: No acute fracture or malalignment.
--- OUTSIDE RECORDS SUMMARY | 2025-04-13 10:46 | XMS_ITS | Encounter Summary ---
Author Organization [facility] Address [address] [place] [id number] Care Team Providers Care Geriatric Physician Name Role Phone Silvia Wilkinson Primary Care Provider + [phone] Encounter Details Date Type Department Care Team (Late st Contact Info) Description 06/16/[address] [facility] [address] [place] [address] Caitlin Ba MD [address] [place] [address] Social History Tobacco Use Types Packs/Day Years Used Date Smoking Tobacco: Every Day Cigarettes 0.5 15 Electronic Cigarettes Smokeless Tobacco: Never Comments:occ vapes Alcohol Use Standard Drinks/Week Comments No 0 (1 standard drink = 0.6 oz pur e alcohol) AUDIT-C Answer Date Recorded Frequency of Alcohol Consumption Never 06/16/2019 Average Number of Drinks Not on file 019 Frequency of Binge Drinking Not on file 06/05 Comments No Sex and Gender Information Value Date Recorded Sex Assigned at Not on file Legal Sex Female 1:34 PM DIGITAL IMAGING TECHNICIAN Gender Identity Not on file Sexual Orientation Not on file documented as of this encounter Functional Status documented as of this encounter Plan of Treatment Not on file documented as of this encounter Results * ECG 12-Lead (06/22/2019 9:25 AM DIGITAL IMAGING TECHNICIAN) 06/22/2019 9:25 AM DIGITAL IMAGING TECHNICIAN Narrative [facility] RAD - 06/23/2019 7:44 PM DIGITAL IMAGING TECHNICIAN [facility] Test Date: 2019-06-22 Pat Name: GERMAN BELL Department: Room: Gender: Female International Marketing Manager: : 1980 Requested By: CAITLIN BA Order Number: [id number] Reading MD: Prosper Rosario Measurements Intervals [place] Rate: 76 P: 50 TX: 139 QRS: 74 QRSD: 90 T: 49 QT: 367 QTc: 414 Interpretive Statements SINUS RHYTHM No previous ECG available for comparison TAL IMAGING TECHNICIAN Procedure Note Prosper Rosario MD - 06/23/2019 [facility] Test Date: 2019-06-22 Pat Name: GERMAN BELL Department: Room: Gender: Female International Marketing Manager: : 1980 Requested By: CAITLIN BA Order Number: [id number] Reading MD: Prosper Rosario Measurements Intervals [place] Rate: 76 P: 50 TX: 139 QRS: 74 QRSD: 90 T: 49 QT: 367 QTc: 414 Interpretive Statements SINUS RHYTHM No previous ECG available for comparison TAL IMAGING TECHNICIAN us Caitlin Ba MD ECG ORDERABLES Final Resul t [facility] ([facility] * URINALYSIS WI REFLEX TO CULTURE (06/22/2019 9:02 AM DIGITAL IMAGING TECHNICIAN) COLOR (U) YELLOW 06/22/2019 10:24 AM [facility] TRANSPARENCY CLEAR 06/22/2019 10:24 AM [facility] SPECIFIC GRAVITY (U) 1.015 1.000 - 1.030 06/22/2019 10:24 AM [facility] U PH 8.0 5.0 - 9.0 06/22/2019 10:24 AM [facility] LEUKOCYTES (U) NEGATIVE NEGATIVE 06/22/2019 10:24 AM [facility] NITRITES NEGATIVE NEGATIVE 06/22/2019 10:24 AM [facility] PROTEIN (U) NEGATIVE NEGATIVE 06/22/2019 10:24 AM [facility] URINE GLUCOSE NEGATIVE NEGATIVE 06/22/2019 10:24 AM [facility] KETONES MG/DL (U) NEGATIVE NEGATIVE 06/22/2019 10:24 AM [facility] BILIRUBIN (U) NEGATIVE NEGATIVE 06/22/2019 10:24 AM [facility] BLOOD (U) NEGATIVE NEGATIVE 06/22/2019 10:24 AM [facility] WBC/HPF NONE SEEN 0 - 5 /HPF 06/22/2019 10:24 AM [facility] RBC/HPF NONE SEEN 0 - 5 /HPF 06/22/2019 10:24 AM [facility] EPI/HPF FEW /HPF 06/22/2019 10:24 AM [facility] CULTURE & SENSITIVITY INDICATED? CULTURE IS NOT INDICATED 06/22/2019 10:24 AM [facility] URINE SPECIMEN OBTAINED BY CLEAN CATCH PROCEDURE / Unknown 06/22/2019 9:02 AM DIGITAL IMAGING TECHNICIAN us Caitlin Ba MD URINE ORDERABLES Final Resu lt [facility] [address] [place] [address], * TYPE & SCREEN (06/22/2019 9:02 AM DIGITAL IMAGING TECHNICIAN) ABO/RH O POSITIVE 06/22/2019 9:34 AM [facility] ANTIBODY SCREEN NEGATIVE 06/22/2019 10:55 AM [facility] SAMPLE EXPIRATION 07/02/2019,2 359 06/22/2019 9:34 AM [facility] 06/22/2019 9:02 AM DIGITAL IMAGING TECHNICIAN Caitlin Ba MD BLOOD BANK TEST ORDERABLES Final Result Performing Organization Address [facility] Co de Phone Number [facility] [address] [place] [address], [place] [phone] * MRSA SCREENING (06/22/2019 9:02 AM DIGITAL IMAGING TECHNICIAN) SPEC DESCRIPTION NASAL 06/22/2019 8:55 AM [facility] SPECIAL REQUESTS NO SPECIAL REQUEST 06/22/2019 8:55 AM [facility] CULTURE RESULT NO METHICILLIN RESISTANT STAPHYLOCOCCUS AUREUS ISOLATED 06/23/2019 11:04 AM [facility] SPECIMEN FROM INTERNAL NOSE / Unknown 06/22/2019 9:02 AM DIGITAL IMAGING TECHNICIAN 06/22/2019 9:04 AM DIGITAL IMAGING TECHNICIAN Caitlin Ba MD MICROBIOLOGY - GENERAL [facility] Final Result Performing Organization Address [facility] Co de Phone Number [facility] [address] [place] [address], [place] [phone] * (ABNORMAL) CBC, AUTO, NO DIFF (06/22/2019 9:02 AM DIGITAL IMAGING TECHNICIAN) WBC 8.7 4.4 - 11.0 x10'3/uL 06/22/2019 9:28 AM [facility] RBC 4.53 4.50 - 5.10 x10'6/uL 06/22/2019 9:28 AM [facility] HGB 10.5(L) 12.3 - 15.3 G/DL 06/22/2019 9:28 AM [facility] HCT 36.4 35.9 - 44.6 % 06/22/2019 9:28 AM [facility] MCV 80.4 80.0 - 96.0 FL 06/22/2019 9:28 AM [facility] MCH 23.2(L) 25.3 - 30.9 PG 06/22/2019 9:28 AM [facility] MCHC 28.8(L) 31.0 - 34.1 G/DL 06/22/2019 9:28 AM [facility] RDW 14.8 12.4 - 15.1 % 06/22/2019 9:28 AM [facility] PLT 402(H) 151 - 353 x10'3/uL 06/22/2019 9:28 AM [facility] MPV 10.4 9.6 - 12.0 FL 06/22/2019 9:28 AM [facility] 06/22/2019 9:02 AM DIGITAL IMAGING TECHNICIAN us Caitlin Ba MD LABORATORY Final Resul t [facility] [address] [place] [address], * (ABNORMAL) BASIC METABOLIC PANEL (06/22/2019 9:02 AM DIGITAL IMAGING TECHNICIAN) GLUCOSE 89 70 - 99 MG/DL 06/22/2019 9:41 AM [facility] BUN 7 7 - 18 MG/DL 06/22/2019 9:41 AM [facility] CREATININE S/P/B 0.81 0.55 - 1.02 MG/DL 06/22/2019 9:41 AM [facility] SODIUM S/P/B 136 136 - 145 MMOL/L 06/22/2019 9:41 AM [facility] POTASSIUM S/P/B 3.8 3.5 - 5.1 MMOL/L 06/22/2019 9:41 AM [facility] CHLORIDE S/P/B 99(L) 100 - 108 MMOL/L 06/22/2019 9:41 AM [facility] CO2 30.5 21 - 32 MMOL/L 06/22/2019 9:41 AM [facility] CALCIUM S/P/B 8.7 8.5 - 10.1 MG/DL 06/22/2019 9:41 AM [facility] ANION GAP 6.5 5 - 15 MMOL/L 06/22/2019 9:41 AM [facility] BUN CREATININE RATIO 8.6 6 - 26 06/22/2019 9:41 AM [facility] EGFR NON-AFR. AMER. >90 >90 ML/MIN/1.7 3 M2 06/22/2019 9:41 AM [facility] EGFR AFR. AMER. >90 >90 ML/MIN/1.7 3 M2 06/22/2019 9:41 AM [facility] Comment: NOTE: eGFR is not calculated for patients <18 years of age. This is an estimated GFR (CKD EPI) and should not be used for calculating drug doses. 06/22/2019 9:02 AM DIGITAL IMAGING TECHNICIAN us Caitlin Ba MD LABORATORY Final Resul t [facility] [address] [place] [address], [place] [phone] documented in this encounter Visit Diagnoses Diagnosis Preop testing- Primary Preoperative examination, unspecified Hypokalemia Hypopotassemia Hypokalemia Hypopotassemia documented in this encounter Care Teams Geriatric Physician Relationship Specialty Start Date End Date Minh, Silvia M, [place] [address] [facility] [address] [facility] [address] [place] [address] PCP - General PHYSICIAN JIG INSPECTOR 06/22/19 documented as of this encounter
--- OUTSIDE RECORDS SUMMARY | 2025-04-13 10:46 | XMS_ITS | Clinical Summary ---
Author Organization [facility] Address [address] [place] [address] Phone Care Team Providers Care Podiatrist Orthopedic Name Role Phone Duncan Mitchell MD Primary Care Provider Allergies No known active allergies Medications traZODone (DESYREL) 50 MG Tablet Take 50 mg by mouth nightly. Active gabapentin (NEURONTIN) 100 MG CapsuleIndicatio ns:Agitation Take 100 mg by mouth 3 times daily as needed. Active HYDROcodone-acet aminophen (NORCO) 10-325 MG Tablet Take 1-2 Tabs by mouth every 6 hours as needed for Severe pain. 30 Tab 9 Active traMADol (ULTRAM) 50 MG Tablet Take 1 Tab by mouth every 6 hours as needed for Moderate or more severe pain. 60 Tab 9 Active ondansetron (ZOFRAN-ODT) 4 MG TABLET DISPERSIBLE Take 1 Tab by mouth every 6 hours as needed for Nausea - 1st line. 25 Tab 1 9 Active potassium chloride SA (KLORCON M) 10 MEQ Tablet Controlled Release Take 1 Tab by mouth 3 times daily. 90 Tab 3 9 Active Additional Information Patient taking differently: 20 mEqOral 3 TIMES DAILY,Indications: Hypokalemia, Reported on 05/12/2019 Active Problems Problem Noted Date Diagnosed Date History of heroin abuse 08/17/2018 History of bulimia 08/17/2018 Hypokalemia 08/16/2018 Closed fracture of neck of left femur with routi ne healing 08/15/2018 Tobacco abuse 08/15/2018 Family History Medical History Relation Name Comments Cancer Father Diabetes Father Osteoarthritis Father No Known Problems Mother Relation Name Status Comments Father Alive Mother Alive Social History Tobacco Use Types Packs/Day Years Used Date Smoking Tobacco: Every Day Cigarettes Smokeless Tobacco: Never Alcohol Use Standard Drinks/Week Comments No 0 (1 standard drink = 0.6 oz pur e alcohol) Sexually Active Control Partners Comments Not Currently Comments No Sex and Gender Information Value Date Recorded Sex Assigned at Not on file Legal Sex Female 11:59 PM CDT Gender Identity Not on file Sexual Orientation Not on file Last Filed Vital Signs Vital Sign Reading Time Taken Comments Blood Pressure 94/55 08/20/2018 7:40 AM ENTRY LEVEL CIVIL ENGINEER Pulse 76 08/20/2018 7:40 AM ENTRY LEVEL CIVIL ENGINEER Temperature 37.1 C (98.8 F) 08/20/2018 7:40 AM ENTRY LEVEL CIVIL ENGINEER Respiratory Rate 20 08/20/2018 7:40 AM ENTRY LEVEL CIVIL ENGINEER Oxygen Saturation 98% 08/19/2018 7:30 AM ENTRY LEVEL CIVIL ENGINEER Inhaled Oxygen Concentration - - Weight 63.5 kg (140 lb) 05/12/2019 11:00 AM CDT Height 167.6 cm (5' 6) 05/12/2019 11:00 AM CDT Body Mass Index 22.6 05/12/2019 11:00 AM CDT Plan of Treatment Health Maintenance Due Date Last Done Comments Hepatitis C Virus (HCV) Screening 1980 TdaP Immunization 1980 Hepatitis B Immunization (1 of 3 - 19+ 3-dose series) 10/22/1999 Pap Smear 2001 Human Papillomavirus (HPV) Immunization (1 - 3-dose SCDM series) 10/22/2007 Cervical Cancer Screening (CCS) 2010 HPV/Cotest 2010 Influenza Immunization (#1) 2025 SARS-COV-2 Immunization (2024- season) 2025 10/07/2021 Respiratory Syncytial Virus (RSV) Immunization (Adult) (1 - 1-dose 75+ series) 10/22/2055 Meningococcal Immunization (ACWY) Aged Out No longer eligible based on patient's age to complete this topic Pneumococcal Immunization Combined Aged Out No longer eligible based on patient's age to complete this topic Rotavirus Immunization Aged Out No lo nger eligible based on patient's age to complete this topic Medical Devices Implanted Type Area Manager Fleet Device Identifier Shelf Expiration Date Model / Serial / Lot Screw Bone 6.5mm 90mm 20mm Asnis Iii Ss P/T Pelvic Debbie Ns - [id number] Implanted:Qty: 1 on 08/15/2018 by Alexis Tang MD at [facility] IMPLANT Left: Hip [employer] [id number] / [id number] / [id number] Screw Bone 6.5mm 85mm Asnis Ss Debbie Self Drill Slftp Loprfl Head Ns - [id number] Implanted:Qty: 2 on 08/15/2018 by Alexis Tang MD at [facility] IMPLANT Left: Hip [employer] [id number] / [id number] / [id number] [place] [address] [facility] Advance Directives * Full Code (Latest Code Status on File) Date Activated Date Inactivated Comments 08/15/2018 8:41 PM 08/20/2018 3:31 PM CPR-Full Sincere atment: FULL ARREST: Attempt Resuscitation/CPR wit intubation and mechanical ventilation. PRE-ARREST: Use entire range of life support measures to stabilize the patient. Care Teams Podiatrist Orthopedic Relationship Specialty Start Date End Date Duncan Mitchell MD [address] [place] [id number] PCP - General Family Medicine 08/15/18
--- OUTSIDE RECORDS SUMMARY | 2025-04-13 10:46 | XMS_ITS | Clinical Summary ---
Author Organization [facility] Address [address] [facility] [place] [address] Care Team Providers Care Superintendent Oil Well Services Name Role Phone Batsheva Mora RN Unavailable [phone] Ramon Contreras MD Primary Care Provider [phone] [facility],non-owned Affiliates and Associated Physician Practices is amultiple site organization consisting of ambulatory clinics and hospital sitesin [place], [place], [place] and [place]. This disclosure is being madepursuant to the Care Everywhere program and may not contain all information available regarding this patient. Last updated 18.[facility] Allergies Active Allergy Reactions Criticality Noted Date Comments Aspirin Swelling 08/05/2010 Tramadol Other 08/19/2020 Was told NOT to take due to risk of seizures Medications * This document contains information received from the source organization and may not represent a complete record from that organization. * Be aware that medications may not be up to date on this document. Alwaysverify current medications with the patient. naloxone HCl (NARCAN) 4 MG/0.1ML nasal sprayIndication s:Opioid dependence in remission (HCC) [place] 1 (one) spray into the nose as needed (opiate overdose) 1 Each 1 1 Active omeprazole (PRILOSEC) 40 MG capsule Take 1 (one) capsule by mouth once daily 2 Active ibuprofen (MOTRIN) 800 MG tablet Take 1 (one) tablet by mouth 3 times daily as needed For pain. 2 Active albuterol HFA (PROVENTIL; VENTOLIN; PROAIR) 108 (90 Base) MCG/ACT inhaler INHALE 2 PUFFS BY MOUTH EVERY 4 HOURS NEEDED FOR SHORTNESS OF BREATH OR WHEEZING 2 Active naltrexone (REVIA) 50 MG tablet Take 1 (one) tablet by mouth once daily Active baclofen (LIORESAL) 20 MG tablet Take 1 (one) tablet by mouth 3 times daily May cause drowsiness. Active Melatonin 10 MG Take 20 (twenty) mg by mouth nightly as needed (insomnia) Active naltrexone (VIVITROL) injection Inject 380 (three hundred eighty) mg into muscle every 21 days Last dose given on 12/19/21. Next dose scheduled for 01/09/22. [facility]. Active traZODone (DESYREL) 150 MG tablet Take 1 (one) tablet by mouth at bedtime Active sulfamethoxazol e-trimethoprim (BACTRIM DS; SEPTRA DS) 800-160 MG tablet Take 1 tablet by mouth every 12 hours 2 Active tiZANidine (Zanaflex) 4 MG tablet Take 1 (one) tablet by mouth 3 times daily as needed For muscle spasms. 2 Active methylphenidate (Ritalin) 10 MG tablet Take 1 (one) tablet by mouth Every morning and lunchtime Active potassium chloride ER (K-TAB) 20 MEQ tablet Take 2 (two) tablets by mouth 2 times daily 28 tablet 2 3 Active zonisamide (Zonegran) 100 MG capsule TAKE 1 CAPSULE BY MOUTH EVERY DAY 90 capsule 1 3 Active lacosamide (Vimpat) 200 MG tabletIndicatio ns:Seizures (HCC),Memory loss TAKE 1 TABLET BY MOUTH TWICE A DAY 60 tablet 2 5 Active Active Problems Problem Noted Date Diagnosed Date Opioid use disorder, severe, in sustained remiss ion 12/03/2022 Methamphetamine use disorder , severe, in sustained remission 12/03/2022 Attention deficit hyperactiv ity disorder (ADHD), predominantly hyperactive type 12/03/2022 TRINH (generalized anxiety disorder) 12/03/2022 Insomnia 12/03/2022 Altered mental status 12/21/2021 History of cerebral aneurysm repair 12/21/2021 History of substance abuse 12/21/2021 Abscess 12/28/2020 Open wound of face 12/27/2020 Arthritis of left knee 09/06/2020 MSSA (methicillin susceptibl e Staphylococcus aureus) infection 06/09/2018 Postoperative wound breakdown 12/20/2017 Wound infection 12/19/2017 Nonruptured cerebral aneurysm 11/06/2017 Immunizations Immunization Administration Dates Next Due INFLUENZA VACCINE, CELL CULT URE, QUADR. (FLUCELVAX QUADRIVALENT; 6MO+) (CCIIV4) 06/07/2020 INFLUENZA VACCINE, QUADR. (F LUZONE; FLULAVAL; FLUARIX; AFLURIA QUADRIVALENT; 6MO+), 0.5 ML (IIV4) 06/09/2018 Family History Medical History Relation Name Comments None Known Father Status: Alive None Known Mother Status: Alive None Known Sister Status: Alive Relation Name Status Comments Father Mother Sister Social History Tobacco Use Types Packs/Day Years Used Date Smoking Tobacco: Every Day Cigarettes 1 20 Smokeless Tobacco: Current Tobacco Cessation:Ready to Q uit: Not Asked; Counseling Given: Not Answered Alcohol Use Standard Drinks/Week Comments No 0 (1 standard drink = 0.6 oz pur e alcohol) AUDIT-C Answer Date Recorded Q1: How often do you have a drink containing alcohol? Never 12/21/2021 Q2: How many drinks containi ng alcohol do you have on a typical day when you are drinking? Patient does not drink Q3: How often do you have si x or more drinks on one occasion? Never 12/21/2021 PHQ-2 Answer Date Recorded PHQ2 TOTAL SCORE 2 11/30/2022 Comments No Sex and Gender Information Value Date Recorded Sex Assigned at Not on file Legal Sex Female 7:21 PM BRAND MGR Gender Identity Not on file Sexual Orientation Not on file Last Filed Vital Signs Vital Sign Reading Time Taken Comments Blood Pressure 119/78 12/26/2022 3:08 PM CDT Pulse 76 12/26/2022 3:08 PM CDT Temperature 37.1 C (98.8 F) 12/26/2022 3:08 PM CDT Respiratory Rate 18 01/09/2022 10:47 AM CDT Oxygen Saturation 99% 12/26/2022 3:08 PM CDT Inhaled Oxygen Concentration 21% 12/31/2020 8 :35 AM CDT Weight 64.4 kg (142 lb) 12/26/2022 3:08 PM CDT Height 165.1 cm (5' 5) 12/26/2022 3:08 PM CDT Body Mass Index 23.63 12/26/2022 3:08 PM CDT Plan of Treatment Health Maintenance Due Date Last Done Comments LIPID TESTING 1980 MAMMOGRAM 1980 DTAP/TDAP/TD VACCINES (1 - Tdap) 10/22/1999 HEPATITIS B VACCINE (1 of 3 - 19+ 3-dose series) 10/22/1999 PNEUMOCOCCAL VACCINE (1 of 2 - PCV) 10/22/1999 PAP SMEAR 2001 HPV VACCINE (1 - 3-dose SCDM series) 10/22/2007 DEPRESSION SCREENING 08/05/2024 09/19/2022 COVID-19 VACCINE (2 - 2024-2 6 season) 2025 10/07/2021 INFLUENZA VACCINE (#1) 2025 , 06/09/2018 ZOSTER VACCINE (1 of 2) 2030 HEPATITIS C SCREENING Completed 01/03/2021 , 10/10/2017 HIV SCREENING Completed 01/03/2021, 12/19/2017, 10/10/2017 HIB VACCINE Aged Out No longer eligi ble based on patient's age to complete this topic MENINGOCOCCAL (Group B) VACCINE SHARED DECISION-MAKING Aged Out No longer eligible based on patient's age to complete this topic MENINGOCOCCAL GROUPS A/C/Y/W VACCINE Aged Out No longer eligible b ased on patient's age to complete this topic Medical Devices Implanted Type Area Audio Tape Librarian Device Identifier Shelf Expiration Date Model / Serial / Lot Aneurysm Clip Ins Artc 6-7 Ef 10mm Kn Lt Crcte Rtn Implanted:Qty: 1 on 09/06/2020 by Carlos Hector MD at [facility] Left: Knee [employer] 02/17/2025 [id number] / / [id number] Left Two Peg Natural Tibia Implanted:Qty: 1 on 09/06/2020 by Carlos Hector MD at [facility] Left: Knee [employer] 03/16/2030 [id number] / / [id number] Left Cr Standard Femur Implanted:Qty: 1 on 09/06/2020 by Calros Hector MD at [facility] Left: Knee [employer] 04/16/2030 [id number] / / [id number] Procedures Procedure Name Priority Date/Time Associated Diagnosis Comments HEPATITIS C AB SCREEN RFLX NAAT QUANT Routine 01/03/2021 6:18 PM CDT HIV-1 HIV-2 ANTIBODY + HIV P24 AG PANEL Routine 01/03/2021 6:18 PM CDT from Last 3 Months or Most Recently Relevant to Health Maintenance Results * HEPATITIS C AB SCREEN RFLX NAAT QUANT (01/03/2021 6:18 PM CDT) Hepatitis C Antibody Non-react david Non-reac tive 01/03/2021 7:52 PM CDT [facility] Comment:Hepatitis C Antibody screen indicates no serologic evidence of past or current infection with Hepatitis C Virus. Patients with unexplained liver disease who are immunocompromised or suspected of having acute Hepatitis C infection may benefit from Nucleic Acid Test (BASSEM) for Hepatitis C Viral RNA to confirm Hepatitis C status. Blood BLOOD SPECIMEN / Unknown Venipuncture / Unknown 01/03/2021 6:18 PM CDT 01/03/2021 7:08 PM CDT us Julee Jeffery PROJECT DESIGN ENGINEER-CT SCAN SPECIAL PROCEDURES TECHNOLOGIST LAB - CHEMISTRY ORDER NAKITA Final Result [facility] [address] [place] [address], [facility] [place] [phone] * HIV-1 HIV-2 ANTIBODY + HIV P24 AG PANEL (01/03/2021 6:18 PM CDT) HIV Antigen/Antibod y 1 & 2 Non-reacti ve Non-react david 01/03/2021 7:52 PM CDT [facility] Comment:Neither HIV-1 p24 An tigen nor HIV-1/HIV-2 Antibodies are detected. Blood BLOOD SPECIMEN / Unknown Venipuncture / Unknown 01/03/2021 6:18 PM CDT 01/03/2021 7:08 PM CDT us Julee Latia PROJECT DESIGN ENGINEER-CT SCAN SPECIAL PROCEDURES TECHNOLOGIST LAB - CHEMISTRY ORDER NAKITA Final Result [facility] [address] [place] [id number], [facility] [place] [phone] from Last 3 Months or Most Recently Relevant to Health Maintenance Advance Directives * Full Code (Latest Code Status on File) Date Activated Date Inactivated Comments 12/21/2021 5:46 AM 12/22/2021 7:23 PM * Full Code Date Activated Date Inactivated Comments 12/28/2020 9:12 PM 01/13/2021 8:25 PM * Full Code Date Activated Date Inactivated Comments 09/06/2020 12:19 PM 09/08/2020 3:43 PM * Full Code Date Activated Date Inactivated Comments 12/19/2017 3:06 PM 12/26/2017 6:23 PM * Full Code Date Activated Date Inactivated Comments 11/08/2017 12:29 PM 11/10/2017 5:55 PM Care Teams Superintendent Oil Well Services Relationship Specialty Start Date End Date Ramon Contreras MD [address] [place] [address] PCP - General 12/26/21 Batsheva Mora, ELPIDIO Appraiser [employer] 12/25/17
--- OUTSIDE RECORDS SUMMARY | 2025-04-13 10:46 | XMS_ITS | Clinical Summary ---
Author Organization [facility] Address [address] [place] [phone] Phone Care Team Providers Care Palliative Care Nurse Name Role Phone Damion French MD Primary Care Provider [phone] Allergies Active Allergy Reactions Criticality Noted Date Comments Aspirin Swelling Low 08/05/2010 Medications HYDROcodone-acet aminophen (NORCO) 5-325 mg Oral tabletIndication s:Proximal humeral fracture Take 1-2 Tabs by mouth every 6 hours as needed for Pain. 120 Tab 1 09/07/2010 Active traMADol (ULTRAM) 50 mg Oral tabletIndication s:Proximal humeral fracture Take 2 Tabs by mouth every 8 hours as needed for Pain. 60 Tab 0 10/26/2010 Active Active Problems Problem Noted Date Diagnosed Date Proximal R humeral fracture 08/05/2010 Social History Tobacco Use Types Packs/Day Years Used Date Smoking Tobacco: Every Day Cigarettes Alcohol Use Standard Drinks/Week Comments Not Asked 0 (1 standard drink = 0.6 oz pur e alcohol) socially Comments No Sex and Gender Information Value Date Recorded Sex Assigned at Not on file Legal Sex Female 5:58 AM CREW ATTENDANT Gender Identity Not on file Sexual Orientation Not on file Last Filed Vital Signs Vital Sign Reading Time Taken Comments Blood Pressure 112/78 10/26/2010 11:22 AM CDT Pulse 77 08/05/2010 6:00 PM CREW ATTENDANT Temperature 36.8 C (98.3 F) 10/26/2010 11:22 AM CDT Respiratory Rate 17 08/05/2010 6:00 PM CREW ATTENDANT Oxygen Saturation 99% 08/05/2010 6:00 PM CREW ATTENDANT Inhaled Oxygen Concentration - - Weight 54.4 kg (120 lb) 10/26/2010 11:22 AM CDT Height 167.6 cm (5' 6) 10/26/2010 11:22 AM CDT Body Mass Index 19.37 10/26/2010 11:22 AM CDT Plan of Treatment Health Maintenance Due Date Last Done Comments DTAP/TDAP/TD VACCINES (1 - Tdap) 10/22/1999 HEPATITIS B VACCINES (1 of 3 - 19+ 3-dose series) 10/03 HPV/Cotest (21-29) 2001 HPV VACCINES (1 - 3-dose SCDM series) 10/22/2007 CERVICAL CANCER SCREENING 2010 HPV/Cotest (30-65) 2010 PAP SMEAR 2010 BREAST CANCER SCREENING 2020 INFLUENZA VACCINE (#1) 2025 06/09/[address] [facility] [employer] PPO Care Teams Palliative Care Nurse Relationship Specialty Start Date End Date Damion French MD [address] [place] [id number] PCP - General Family Practice 08/05/10
--- OUTSIDE RECORDS SUMMARY | 2025-04-13 10:46 | XMS_ITS | Clinical Summary ---
Author Organization [facility] Address [address] [place] [id number] Care Team Providers Care Water Carter Name Role Phone Silvia Wilkinson Primary Care Provider [phone] Allergies Active Allergy Reactions Criticality Noted Date Comments Aspirin Itching,Throat swelling,Redness Medium 06/16/2019 Mom is also allergic to it Pt states took Excedrin - caused itching and facial flushing w/ mild throat swelling Pt states she has taken in the past - had a low dose w/ no reaction, just avoids. Tramadol Unknown 09/15/2020 Medications calcium acetate 667 MG capsule Take 667 mg by mouth 3 (three) times daily with meals. Active Cholecalciferol (VITAMIN D) 50 MCG (2000 UT) Tab Active Family History Medical History Relation Comments Anesthesia problems Neg Hx Social History Tobacco Use Types Packs/Day Years [...] on file Legal Sex Female 1:34 PM PEAT SHREDDER TENDER Gender Identity Not on file Sexual Orientation Not on file Last Filed Vital Signs Vital Sign Reading Time Taken Comments Blood Pressure 105/73 09/15/2020 9:02 PM PEAT SHREDDER TENDER Pulse 103 09/15/2020 7:52 PM PEAT SHREDDER TENDER Temperature 36.2 C (97.1 F) 09/15/2020 7:52 PM PEAT SHREDDER TENDER Respiratory Rate 18 09/15/2020 7:52 PM PEAT SHREDDER TENDER Oxygen Saturation 98% 09/15/2020 9:29 PM PEAT SHREDDER TENDER Inhaled Oxygen Concentration - - Weight 56.7 kg (125 lb) 09/15/2020 7:52 PM PEAT SHREDDER TENDER Height 167.6 cm (5' 6) 09/15/2020 7:52 PM PEAT SHREDDER TENDER Body Mass Index 20.18 09/15/2020 7:52 PM PEAT SHREDDER TENDER Plan of Treatment Health Maintenance Due Date Last Done Comments Cervical Cancer Screening Pa p Smear (Age 30 to 64) Every 3 Years 1980 Annual Physical 10/22/1983 Hepatitis C 1998 DTaP, Tdap and Td Vaccines ( 1 - Tdap) 10/22/1999 Hepatitis B Vaccines (1 of 3 - 19+ 3-dose series) 10/22/1999 Pneumococcal Vaccine: Pediat rics (0 to 5 Years) and At-Risk Patients (6 to 49 Years) (1 of 2 - PCV) 10/22/1999 HPV Vaccines (1 - 3-dose SCD M series) 10/22/2007 Cervical Cancer Screening Pa p with HPV Testing (Age 30 to 64) Every 5 Years 2010 Cervical Cancer Screening with HPV 2010 Mammogram Screening 2020 COVID-19 Vaccine (2023-2 5 season) 2025 Meningococcal B Vaccine Aged Out No l onger eligible based on patient's age to complete this topic Meningococcal Vaccine Aged Out No segun jarad eligible based on patient's age to complete this topic RSV Immunizations Under 20 Months Aged Out No longer eligible based on patient's age to complete this topic Insurance [facility] Care Teams Water Carter Relationship Specialty Start Date End Date Silvia Wilkinson PA [address] [facility] [address] [facility] [address] [place] [address] PCP - General PHYSICIAN PHYSICIAN OFFICE NURSE 06/22/19
--- OUTSIDE RECORDS SUMMARY | 2025-04-13 10:46 | XMS_ITS | Clinical Summary ---
Author Organization [facility] A Address [address] [place] [address] Care Team Providers Care Partnership Marketing Manager Name Role Phone Duncan Mitchell MD Primary Care Provider Allergies Active Allergy Reactions Criticality Noted Date Comments Aspirin Itching,Redness,Swelling Medium 08/05/2010 Mom is also allergic to it Pt states took Excedrin - caused itching and facial flushing w/ mild throat swelling Pt states she has taken in the past - had a low dose w/ no reaction, just avoids. Medications potassium chloride (KLOR-CON) 20 mEq packet Take 20 mEq by mouth 2 (two) times a day. Active gabapentin (NEURONTIN) 100 mg capsule Take 200 mg by mouth 3 (three) times a day. Active albuterol HFA (PROVENTIL HFA,VENTOLIN HFA,PROAIR HFA) 90 mcg/actuation inhaler INHALE 2 PUFFS BY MOUTH EVERY 4 HOURS NEEDED FOR SHORTNESS OF BREATH/WHEEZI NG 0 Active armodafiniL (NUVIGIL) 150 mg tablet Take 150 mg by mouth every morning 0 Active busPIRone (BUSPAR) 5 mg tablet Take 5 mg by mouth 2 (two) times a day Active calcium acetate,phosphat bind, (PHOSLO) 667 mg capsule Take 667 mg by mouth 3 times daily Active cholecalciferol (VITAMIN D-3) 2000 unit tablet Take by mouth Acti ve ferrous sulfate 325 mg (65 mg of elemental iron) tablet Take 1 tablet by mouth every other day 0 Active Flonase Sensimist 27.5 mcg/actuation nasal spray SPRAY 1 SPRAY INTO EACH NOSTRIL EVERY DAY 0 Active HYDROcodone-acetam inophen (NORCO) 5-325 mg per tablet Take by mouth every 8 (eight) hours as needed 0 Active loratadine (CLARITIN) 10 mg tablet Take 10 mg by mouth daily 0 Active olopatadine (PATADAY) 0.2 % ophthalmic solution INSTILL 1 DROP INTO BOTH EYES EVERY MORNING 0 Active magnesium oxide,aspartate,ci tr (Triple Magnesium Complex) 400 mg magnesium capsule Take by mouth Active omeprazole (PriLOSEC) 40 mg capsule 0 Active ondansetron ODT (ZOFRAN-ODT) 4 mg disintegrating tablet Take 4 mg by mouth every 6 (six) hours as needed 9 Active 28 mg iron- 800 mcg tablet Take 1 tablet by mouth daily 0 Active traZODone (DESYREL) 50 mg tablet 0 Active ibuprofen (ADVIL,MOTRIN) 600 mg tablet Take 1 tablet (600 mg total) by mouth every 6 (six) hours as needed for pain 30 tablet 1 Active Active Problems Problem Noted Date Diagnosed Date Closed fracture of upper end of tibia 05/19/2020 History of bulimia 08/17/2018 History of heroin abuse 08/17/2018 Hypokalemia 08/16/2018 Closed fracture of neck of left femur with routi ne healing 08/15/2018 Tobacco abuse 08/15/2018 MSSA (methicillin susceptibl e Staphylococcus aureus) infection 06/09/2018 Postoperative wound breakdown 12/20/2017 Wound infection 12/19/2017 Nonruptured cerebral aneurysm 11/06/2017 Proximal humeral fracture 08/05/2010 Immunizations Immunization Administration Dates Next Due Influenza, Quadrivalent, Spl it, Preservative Free, Intramuscular 06/09/2018 Surgical History Surgery Date Site/Laterality Comments TIBIA FRACTURE SURGERY HIP FRACTURE SURGERY Left CEREBRAL ANEURYSM REPAIR Medical History Medical History Date Comments History of heroin use Asthma Family History Medical History Relation Name Comments Asthma Neg Hx Diabetes Neg Hx Social History Tobacco Use Types Packs/Day Years Used Date Smoking Tobacco: Every Day Cigarettes Smokeless Tobacco: Never Alcohol Use Standard Drinks/Week Comments Not Currently 0 (1 standard drink = 0.6 oz pur e alcohol) Personal Safety Answer Date Recorded Getting School Help Needed Not on file 08/06 Comments No Sex and Gender Information Value Date Recorded Sex Assigned at Not on file Legal Sex Female 8:42 AM [employer]GRESS MAN Gender Identity Not on file Sexual Orientation Not on file Obstetrics History Last Filed Vital Signs Vital Sign Reading Time Taken Comments Blood Pressure 128/95 06/28/2022 11:09 PM PROGRESS MAN Pulse 72 06/28/2022 11:09 PM [employer]GRESS MAN Temperature 36.8 C (98.2 F) 06/28/2022 8:05 PM PROGRESS MAN Respiratory Rate 16 06/28/2022 11:09 PM PROGRESS MAN Oxygen Saturation 97% 06/28/2022 11:09 PM PROGRESS MAN Inhaled Oxygen Concentration - - Weight 68 kg (150 lb) 06/28/2022 8:05 PM PROGRESS MAN Height 167.6 cm (5' 6) 06/28/2022 8:05 PM PROGRESS MAN Body Mass Index 24.21 06/28/2022 8:05 PM PROGRESS MAN Plan of Treatment Health Maintenance Due Date Last Done Comments Breast Cancer Screening-Mammogram 1980 Cervical Cancer Screening 1980 Depression Screening 1980 Hepatitis C Screening 1980 DTaP/Tdap/Td Vaccine (1 - Tdap) 10/22/1991 Varicella Vaccines (1 of 2 - 13+ 2-dose series) 1993 Hepatitis B Screening 1998 Regular Well Visit/Exam 18-64 1998 Pneumococcal vaccine <65 (1 of 2 - PCV) 10/22/1999 HPV Vaccines (1 - 3-dose SCDM series) 10/22/2007 Influenza Vaccine (#1) 2025 06/07/2020, [address] [place] [address] [facility] Care Teams Partnership Marketing Manager Relationship Specialty Start Date End Date Duncan Mitchell MD [address] [place] [id number] PCP - General 06/09/17
== END ==
LOC: EXPTRAD 09:38
PROVIDERS: PCP Nurse Practitioner Family; Visit Provider Nurse Practitioner Family
DX: M25.532 Pain in left wrist (principal); M79.632 Pain in left forearm
CPT/HCPCS: 73090; 73100